=== PATIENT | female | born 1960 | race Caucasian/White ===

== ENCOUNTER 2022-08-21 06:02 | Observation (INO) | payer BC ==
[2022-08-19 11:57] LABS: BASOPHILS % (AUTO) 0.8 % (0-1); EOSINOPHILS # (AUTO) 0.1 X10'3 (0-0.9); EOSINOPHILS % (AUTO) 2.4 % (0-6); LYMPHOCYTES # (AUTO) 1.3 X10'3 (1.1-4.8); LYMPHOCYTES % (AUTO) 28.4 % (21-51); MEAN CORPUSCULAR HEMOGLOBIN 31.3 PG (27.0-31.0); MEAN CORPUSCULAR HGB CONC 33.8 g/dL (33.0-36.5); MEAN CORPUSCULAR VOLUME 92.4 FL (78-98); MEAN PLATELET VOLUME 7.3 FL (7.4-10.4); MONOCYTES # (AUTO) 0.5 X10'3 (0-0.9); NEUTROPHILS # (AUTO) 2.7 X10'3 (1.8-7.7); NEUTROPHILS % (AUTO) 58.4 % (42-75); PRE OP HEMATOCRIT 39.4 % (35.0-45.0); PRE OP HEMOGLOBIN 13.3 g/dL (12.0-16.0); PRE OP PLATELET COUNT 259 X10'3 (140-440); RED BLOOD COUNT 4.26 X10'6 (4.20-5.60); RED CELL DISTRIBUTION WIDTH 13.8 % (11.5-14.5)
[2022-08-19 12:09] LABS: ALBUMIN 3.6 G/DL (3.4-5.0); ALBUMIN/GLOBULIN RATIO 1.1 (1.1-1.5); ALKALINE PHOSPHATASE 80 IU/L (46-116); BLOOD UREA NITROGEN 14 MG/DL (7-18); BUN/CREATININE RATIO 18.2 (6.6-38.0); CALCIUM 8.9 MG/DL (8.5-10.1); CHLORIDE 106 MMOL/L (99-107); CREATININE 0.77 MG/DL (0.40-0.90); PRE OP ALT 26 U/L (30-65); PRE OP ANION GAP 7 (8-16); PRE OP AST 16 U/L (10-37); PRE OP BILIRUB, TOTAL 0.3 MG/DL (0.0-1.0); PRE OP GLUCOSE 93 MG/DL (70-104); PRE OP POTASSIUM 4.3 MMOL/L (3.4-5.1); PRE OP SODIUM 142 MMOL/L (135-145); TOTAL CARBON DIOXIDE 29.3 MMOL/L (24-32); TOTAL PROTEIN 6.8 G/DL (6.4-8.2); eGFR 76 ML/MIN
[~2022-08-21] VITALS: Ht 162.6 cm; Wt 81.3 kg
[2022-08-21] VITALS (9 sets, daily range): BP systolic 115–132; BP diastolic 63–76
[~2022-08-21 06:02] MED LIST: CETI-91 PO; HORMONE CREAM VG; LACT1CAP75 PO; MULT-1085 PO; SYN0.088T PO; ceFAZolin inj. 2,000 MG in dextrose 5%-water 100 ML IV ONE; famotidine 20mg tablet PO ONE; ringers solution, lacted 1,000 ML IV SCH
[2022-08-21] MEDS ORDERED: LIDOcaine 1% 30ml preserv. free vial ONE (06:50)
[2022-08-21] MEDS ORDERED: BUPIVAcaine 0.5% inj/PF 0 ML ONE (06:51)
[2022-08-21] MEDS ORDERED: ketorolac trometh. 30mg/ml inj. ONE (06:51)
[2022-08-21] MEDS ORDERED: BUPIVAcaine 0.25% w/Epi /PF 30ml vial ONE (06:51)
[2022-08-21] MEDS ORDERED: BUPIVAcaine/PF 5 mg/ml 10ml ONE (06:52)
[2022-08-21] MEDS ORDERED: morphine 2 MG/ML inj. syringe IV PRN (07:15)
[2022-08-21] MEDS ORDERED: ringers solution, lacted 1,000 ML IV SCH (07:15)
[2022-08-21] MEDS ORDERED: ondansetron/PF 4mg/2ml inj IV PRN (07:15)
[2022-08-21] MEDS ORDERED: hydrALAZINE 20mg/ml inj. IV PRN (07:15)
[2022-08-21] MEDS ORDERED: morphine 4 MG/ML inj SYRINge IV PRN (07:15)
[2022-08-21] MEDS ORDERED: fentaNYL/PF 50MCG/1 ML 2ML syringe IV PRN ×2 (07:15)
[2022-08-21] MEDS ORDERED: BUPIVAcaine 0.5% inj/PF 30 ML ONE (07:38)
[2022-08-21] MEDS ORDERED: epiNEPHrine 1 mg/ml inj ONE (07:39)
[2022-08-21] MEDS ORDERED: propofol inj 20 ML IV ONE (08:01)
[2022-08-21] MEDS ORDERED: midazolam 1 mg/ML 2ml injection ONE (08:01)
[2022-08-21] MEDS ORDERED: LIDOcaine 1%/PF 5ML 10 MG/ML VIAL ONE (08:01)
--- NOTE | 2022-08-21 08:53 | NUR ---
Received from OR via [facility], accompanied by Anesthesiologist JANNET and report given by Anesthesiolgist. PT PRESENTS WITH PIV 20G RIGHT HAND, DRESSING ON LEFT KNEE CDI, VSS. Addendum: 08/21/22 at 0913 by Adelina Odonnell RN, RN Amended: Links added.
[2022-08-21] MEDS ORDERED: HYDROcodone/acetaminophen 10/325mg tab PO PRN (09:15)
--- NOTE | 2022-08-21 10:13 | NUR ---
I HAVE REVIEWED D/C INSTRUCTIONS WITH PATIENT AND THEY HAVE VERBALIZED UNDERSTANDING OF INSTRUCTIONS. PATIENT D/C HOME WITH ALL BELONGINGS AND FAMILY GAVE TRANSPORT Addendum: 08/21/22 at 1020 by Adelina Odonnell RN RN Amended: Links added.
== END 2022-08-21 10:13 | disposition home or self-care (01) ==
LOC: PAS 06:02 → PAS IN 09:22
PROVIDERS: ADMIT Orthopaedic Surgery; ATTEND Orthopaedic Surgery
DX: S83.232A Complex tear of medial meniscus, current injury, left knee, initial encounter (principal); X58.XXXA Exposure to other specified factors, initial encounter; Y93.89 Activity, other specified; Y92.89 Other specified places as the place of occurrence of the external cause
CPT/HCPCS: 29881; 36415; 80053; 82948; 85025; G0378; J0171; J0690; J1885; J2250; J2704; J3490; J7060; J7120; S0020; A4215; A4618; A6449; A7000